=== PATIENT | male | born 2000 | race Caucasian/White ===

== ENCOUNTER 2021-10-24 11:42 | Emergency (ER) | payer MEDICARE ==
[~2021-10-24 11:42] MED LIST: BENTYL10 MG PO
[2021-10-24] MEDS ORDERED: PREDNISONE 20MG20 MG PO (14:11)
[2021-10-24] MEDS ORDERED: VALACYCLOVIR1000 MG PO (14:11)
== END 2021-10-24 14:29 | disposition home or self-care (01) ==
LOC: FER 11:42
DX: G51.0 Bell's palsy (principal); I10 Essential (primary) hypertension; Z28.310 Unvaccinated for COVID-19
CPT/HCPCS: 70450